=== PATIENT | female | born 1995 | race Caucasian/White ===

== ENCOUNTER 2022-10-23 08:16 | Emergency (ER) | payer OTHER ==
[~2022-10-23] VITALS: Ht 160 cm; Wt 63.5 kg
[2022-10-23 08:30] VITALS: BP 114/63
[2022-10-23] MEDS ORDERED: KETOROLAC 30 MG/ML VIAL IM ONE (10:55)
--- NOTE | 2022-10-23 10:55 | NUR ---
27 yo/f presents to ED w c/o R ankle pain when walking 03/02 x1 day s/p tripping and twisting her R ankle while running. +rom, cap refil<2sec. pmh: denies allergies: denies
[2022-10-23] MEDS ORDERED: IBUP-2213 PO (11:20)
[2022-10-23 11:45] VITALS: BP 108/79
--- NOTE | 2022-10-23 11:46 | NUR ---
Patient discharged with v/s stable. Written and verbal after care instructions given and explained. Patient alert, oriented and verbalized understanding of instructions. Ambulatory with steady gait w crutches. All questions addressed prior to discharge. ID band removed. Patient advised to follow up with PMD. Rx of ibuprofen given. Patient educated on indication of medication including possible reaction and side effects. Opportunity to ask questions provided and answered.
== END 2022-10-23 11:45 | disposition home or self-care (01) ==
LOC: MED 08:16
DX: S93.401A Sprain of unspecified ligament of right ankle, initial encounter (principal); Z79.1 Long term (current) use of non-steroidal anti-inflammatories (NSAID); X50.1XXA Overexertion from prolonged static or awkward postures, initial encounter; Y93.02 Activity, running; Y92.89 Other specified places as the place of occurrence of the external cause; Y99.8 Other external cause status
CPT/HCPCS: 73610; 81025; 96372; 99283; J1885

== ENCOUNTER 2023-04-02 17:00 | Emergency (ER) | payer OTHER ==
[~2023-04-02] VITALS: Ht 157.5 cm; Wt 66.2 kg
[~2023-04-02 17:00] MED LIST: IBUP-2213 PO
[2023-04-02 17:28] VITALS: BP 116/70; PULSE 85; RESP 20; TEMP 97.8; O2SAT 99
[2023-04-02 18:17] LABS: BASOPHILS % (AUTO) 0.6 % (0.0-2.0); EOSINOPHILS # (AUTO) 0.1 K/uL (0-0.4); HEMATOCRIT 39.1 % (36-48); HEMOGLOBIN 13.1 g/dL (12.0-16.0); LYMPHOCYTES # (AUTO) 3.2 K/uL (2.5-16.5); LYMPHOCYTES % (AUTO) 42.8 % (20.5-51.1); MEAN CORPUSCULAR HEMOGLOBIN 27 pg (27-31); MEAN CORPUSCULAR HGB CONC 34 g/dL (33-37); MEAN CORPUSCULAR VOLUME 80.3 fL (80-94); MONOCYTES # (AUTO) 0.6 K/uL (0.8-1.0); NEUTROPHILS # (AUTO) 3.5 K/uL (1.8-7.7); NEUTROPHILS % (AUTO) 46.6 % (42.2-75.2); PLATELET COUNT (AUTO) 233 K/uL (140-450); RED BLOOD CELL COUNT(AUTO) 4.87 MIL/uL (4.20-5.40); RED CELL DISTRIBUTION WIDTH 13.9 % (11.6-13.7); WHITE BLOOD COUNT (AUTO) 7.5 K/uL (4.8-10.8)
[2023-04-02] MEDS ORDERED: KETOROLAC 30 MG/ML VIAL IM ONE (18:35)
[2023-04-02] MEDS ORDERED: LIDOCAINE 5% 1 EA PATCH TP ONE (18:35)
[2023-04-02] MEDS ORDERED: ACETAMINOPHEN 325 MG TAB PO ONE (18:35)
[2023-04-02 18:38] LABS: ALANINE AMINOTRANSFERASE 28 U/L (12-78); ALBUMIN 3.5 g/dL (3.4-5.0); ALKALINE PHOSPHATASE 81 U/L (50-136); ANION GAP 9.9 (8-16); ASPARTATE AMINOTRANSFERASE 14 U/L (15-37); CARBON DIOXIDE 29.9 mmol/L (21-32); CHLORIDE 102 mmol/L (98-107); CREATININE 0.7 mg/dL (0.6-1.3); GFR ARICAN-AMERICAN 128 mL/min (>90); GFR NON ARICAN-AMERICAN 106 mL/min (>90); GLUCOSE 83 mg/dL (74-106); LIPASE 44 U/L (16-77); POTASSIUM 3.8 mmol/L (3.5-5.1); SODIUM SERUM 138 mmol/L (136-145); TOTAL BILIRUBIN 0.3 mg/dL (0.0-1.0); TOTAL PROTEIN, SERUM 7.4 g/dL (6.4-8.2); UREA NITROGEN, BLOOD 15 mg/dL (7-18)
[2023-04-02 19:11] VITALS: O2SAT 99
[2023-04-02 19:41] LABS: APPEARANCE,URINE CLEAR (CLEAR); BILIRUBIN,URINE NEGATIVE (NEGATIVE); BLOOD, URINE 1+ (NEGATIVE); LEUKOCYTE ESTERASE ,URINE NEGATIVE (NEGATIVE); NITRITE, URINE NEGATIVE (NEGATIVE); PROTEIN,URINE NEGATIVE (NEGATIVE); UGLUCOSE NEGATIVE (NEGATIVE); UROBILINOGEN,URINE 0.2 EU/dL (0.2 - 1)
[2023-04-02 19:47] LABS: COLOR,URINE STRAW (YELLOW)
[2023-04-02 19:51] LABS: BACTERIA,URINE FEW /HPF (None Seen); RBC,URINE 0-5 /HPF (0-5); SQUAMOUS EPITHELIAL CELL,UR 4-10 (MOD) /LPF (0-3 (FEW)); WBC,URINE NONE SEEN /HPF (0-5)
[2023-04-02] MEDS ORDERED: IBUP-2213 PO (20:03)
[2023-04-02] MEDS ORDERED: LID5T TP (20:03)
[2023-04-02] MEDS ORDERED: DICL100G32 TP (20:03)
[2023-04-02] MEDS ORDERED: METH-1681 PO (20:03)
[2023-04-02] MEDS ORDERED: ONDA-188 SL (20:11)
[2023-04-02 20:28] VITALS: BP 116/70; PULSE 85; RESP 20; TEMP 97.8; O2SAT 99
== END 2023-04-02 20:28 | disposition home or self-care (01) ==
LOC: MED 17:00
DX: S30.0XXA Contusion of lower back and pelvis, initial encounter (principal); R42 Dizziness and giddiness; Z79.1 Long term (current) use of non-steroidal anti-inflammatories (NSAID); Z79.899 Other long term (current) drug therapy; W01.0XXA Fall on same level from slipping, tripping and stumbling without subsequent striking against object, initial encounter; Y92.89 Other specified places as the place of occurrence of the external cause; Y93.89 Activity, other specified; Y99.8 Other external cause status
CPT/HCPCS: 36415; 80053; 81001; 81025; 83690; 84484; 85025; 93005; 96372; 99284; J1885